=== PATIENT | male | born 1955 | race African-American/Black ===

== ENCOUNTER 2016-08-22 13:27 | Emergency (ER) | payer MEDICAID ==
[~2016-08-22] VITALS: Ht 175.3 cm; Wt 131.0 kg
[2016-08-22] MEDS ORDERED: KETOROLAC 60MG/2ML VIAL IM ONE (15:15)
[2016-08-22] MEDS ORDERED: PREDNISONE 20MG TABLET PO ONE (15:15)
[2016-08-22] MEDS ORDERED: IPRATROPIUM BROMIDE (0.02%) 0.5MG/2.5ML NEB HHN ONE (15:15)
[2016-08-22] MEDS ORDERED: ALBUTEROL (0.5%) 2.5MG/0.5ML NEB HHN ONE (15:15)
[2016-08-22 17:02] VITALS: BP 145/85
== END 2016-08-22 17:04 | disposition home or self-care (01) ==
LOC: ER 15:58
DX: J44.1 Chronic obstructive pulmonary disease with (acute) exacerbation (principal); M17.12 Unilateral primary osteoarthritis, left knee; N18.6 End stage renal disease; E11.22 Type 2 diabetes mellitus with diabetic chronic kidney disease; E78.00 Pure hypercholesterolemia, unspecified; I12.0 Hypertensive chronic kidney disease with stage 5 chronic kidney disease or end stage renal disease; F17.200 Nicotine dependence, unspecified, uncomplicated; Z98.890 Other specified postprocedural states; Z99.2 Dependence on renal dialysis
CPT/HCPCS: 36415; 73562; 84484; 93005; 94640; 96372; 99285; J1885; J7512; J7611; Z7610